=== PATIENT | female | born 1975 | race Caucasian/White ===

== ENCOUNTER 2017-02-20 11:03 | Emergency (ER) | payer OTHER ==
[~2017-02-20 11:03] MED LIST: CIPRO PO; CLEOCIN100 MG/SUP VAG; CLINDAMAX30 GM VAG; DIAZEPAM10 MG PO; FLAGYL PO; LAMICTAL PO; LEVAQUIN250 MG PO; METHADONE HCL10 MG PO; NO MEDICATIONS; TINDAMAX250 MG PO; TINIDAZOLE250 MG; ULTRAM PO; URISPAS100 M1 PO; VOLTAREN75 MG PO; ZOFRAN ODT4 MG PO; ZOLOFT PO
[2017-02-20] MEDS ORDERED: IBUPROFEN800 MG PO (11:09)
== END 2017-02-20 11:36 | disposition home or self-care (01) ==
LOC: SED 11:03
DX: K04.7 Periapical abscess without sinus (principal); F17.210 Nicotine dependence, cigarettes, uncomplicated; Z79.899 Other long term (current) drug therapy
CPT/HCPCS: 99282